=== PATIENT | male | born 1990 | race Caucasian/White ===

== ENCOUNTER → 2019-07-15 | Emergency (ER) | payer OTHER ==
[~2019-07-15] VITALS: Ht 177.8 cm; Wt 68.0 kg
[~2019-07-15] MED LIST: IBUPROFEN 800 MG TAB PO ONE; LIDOCAINE 1% HCL (LOCAL ANESTH.) INJ 20ML MDV ONE; cefTRIAXone SOD 1,000 MG VL IM ONE
[2019-07-15 12:48] VITALS: BP 152/101
== END | disposition home or self-care (01) ==
LOC: ER 11:57
DX: S60.425A Blister (nonthermal) of left ring finger, initial encounter (principal); L02.512 Cutaneous abscess of left hand; X58.XXXA Exposure to other specified factors, initial encounter; Y93.89 Activity, other specified; Y92.89 Other specified places as the place of occurrence of the external cause; Y99.8 Other external cause status
CPT/HCPCS: 26010; 96372; 99283; J0696; J2001